=== PATIENT | female | born 1970 | race American Indian/Alaskan Native ===

== ENCOUNTER 2017-01-16 12:24 | Day surgery (SDC) | payer MEDICAID ==
[2017-01-16] MEDS ORDERED: INFANTS' GAS RELIEF PO ONE (13:59)
[2017-01-16] MEDS ORDERED: NACL 0.9% 1000 ML ONE (14:00)
[2017-01-16] MEDS ORDERED: NACL 0.9% 1000 ML 1,000 ML IV SCH (14:00)
[2017-01-16] MEDS ORDERED: WATER FOR IRRIG STERILE ONE (14:43)
--- NOTE | 2017-01-16 15:04 | Anesthesia Day of Surgery ---
Anesthesia Day of Surgery - Day of Surgery Patient Examined: Yes Patient H&P Reviewed: Yes Patient is NPO: Yes
--- NOTE | 2017-01-16 15:05 | Anesthesia Consultation ---
Anesthesia Consult and Med Hx Date of service: 01/16/17 - Airway Anesthetic Teeth Evaluation: Good ROM Head & Neck: Adequate Mental/Hyoid Distance: Adequate Mallampati Class: Class II Intubation Access Assessment: Probably Good - Pulmonary Exam CTA: Yes - Cardiac Exam Cardiac Exam: RRR - Pre-Operative Health Status ASA Pre-Surgery Classification: ASA2 Proposed Anesthetic Plan: MAC - Pulmonary Hx Smoking: Yes (3 cig/day for long time) Hx Asthma: Yes (inhaler prn) Hx Respiratory Symptoms: No (sarcodosis) - Cardiovascular System Hx Hypertension: No Hx Heart Attack/AMI: No - Central Nervous System Hx Seizures: No CVA: No - Additional Comments Anesthesia Medical History Comments: NAC
--- NOTE | 2017-01-16 15:14 | Post Anesthesia Evaluation ---
- Post Anesthesia Evaluation Patient Participated: Yes Airway Patent: Yes Stable Respiratory Function: Yes Nausea/Vomiting: No Temp > 96.8F: Yes Pain Manageable: Yes Adequeate Hydration: Yes Anesthesia Complications: No Block Receding Appropriately: Not Applicable Patient on Ventilator: No
[2017-01-16 15:18] VITALS: BP 109/79
--- NOTE | 2017-01-16 22:25 | Discharge Summary ---
Short Stay Discharge Plan Activity: advance as tolerated Weight Bearing Status: Weight Bear as Tolerated Diet: regular Additional Instructions: Post Sedation D/C Instructions When you return home you may resume your regular diet unless otherwise directed. -Go directly home from the hospital and rest quietly. You may resume normal activities tomorrow. -Do NOT drive, return to work, operate any machinery or make any important personal or business decisions today. -Do NOT drink any alcohol or take nerve or sleeping drugs. They add to the effects of the medicine still present in your body. Follow up with Dr. Thornton in 2 weeks to obtain pathology results. Follow up with: IRAIS METCALF MD [Primary Care Provider] - 7 Days
--- NOTE | 2017-01-16 22:32 | Operative Report ---
Operative Report Operative Report: Date of procedure: 01/16/2017 Procedure: Colonoscopy with hot biopsy polypectomy. Attending physician: Wilmer Thornton MD Binder Fixer: Wilmer Thornton MD Indication: Patient is a 46-year-old female who presents for colonoscopy because of her strong family history of colon cancer. Patient apparently has family history of colon cancer in a first degree relative. Consent: Informed consent was obtained after advising the patient and family regarding nature of this procedure, its indications, potential benefits as well as possible complications including but not limited to bleeding perforation and adverse reaction to medication, infection as well as other cardiopulmonary complications. An informed written and verbal consent was then obtained after due opportunity was provided for questions and answers. Monitoring: Patient was monitored continuously with pulse oximetry and electrocardiographic recordings as well as blood pressure recordings. Vital signs remained stable throughout this procedure with no untoward events. Preoperative assessment: Patient was assessed immediately prior to this procedure for capacity to tolerate monitored anesthesia care and moderate sedation as well as general anesthesia. Patient's ASA classification is 1, Mallampati class is 2], Hyomental distance is 3. Instrument: Cerebrexn videocolonoscope Medications: Propofol given intravenously in divided doses. For details please refer to anesthesia records. Description of procedure: Patient was placed in the left lateral decubitus position after achieving sedation, a digital rectal examination was performed following which the colonoscope was introduced into the anal verge and advanced to the cecum which was identified by the cecal valve, the appendiceal orifice, as well as by the cecal strap and direct transillumination. The colonoscope was subsequently withdrawn with careful inspection of all mucosal surfaces. Patient tolerated this procedure well and was subsequently taken to the recovery room. The following findings were noted. Findings: Patient had 2 diminutive polyps in the sigmoid colon which were removed by hot biopsy polypectomy. There was an adjoining polyp which also was ablated. The rest of the colon to the cecum was normal. There was a diverticulum seen in the ascending colon. On the retroflex view at the anal verge, patient had internal hemorrhoids. Impression: Diminutive Sigmoid colon polyp status post hot biopsy polypectomy. Ascending colon diverticulum. Internal hemorrhoids. Plan: High-fiber diet Follow pathology report to rule out adenoma. Patient should repeat colonoscopy in 5 years.
== END 2017-01-16 12:25 | disposition home or self-care (01) ==
LOC: GIO 12:24
PROVIDERS: ATTEND Internal Medicine Gastroenterology
DX: Z12.11 Encounter for screening for malignant neoplasm of colon (principal); K63.5 Polyp of colon; K57.30 Diverticulosis of large intestine without perforation or abscess without bleeding; K64.8 Other hemorrhoids; F17.210 Nicotine dependence, cigarettes, uncomplicated; J45.909 Unspecified asthma, uncomplicated; Z80.0 Family history of malignant neoplasm of digestive organs
CPT/HCPCS: 45384; 88305; J7030

== ENCOUNTER 2017-11-22 14:38 | Emergency (ER) | payer MEDICAID ==
--- NOTE | 2017-11-22 16:36 | Emergency Department Report ---
ED Headache HPI - General Chief Complaint: Headache Stated Complaint: HEADACHES /BLURRY VISION Time Seen by Provider: 11/22/17 16:16 - History of Present Illness Initial Comments: pt is a 47 y/o aaf with hx of seasonal allergies and sinuse headache presents for same today states frontal headache with sinus pressure. pain is relieved by nothing pain is exacerbated by movement and position, there is no fever no chills no wheezing no cough Timing/Duration: other (2 days ) Quality: moderate Head Injury Location: frontal Recent Head Trauma: occasional headaches Modifying Factors: improves with: other (movement position ) Associated Symptoms: facial pain, nasal congestion, nasal drainage, sinus infection. denies: confusion, fatigue, fever/chills, flushing, nausea/vomiting , numbness in legs/feet, rash, seizures, stiff neck, vision changes, weakness Allergies/Adverse Reactions: Allergies Iodine and Iodide Containing Produc Allergy (Verified 07/02/16 15:46) Hives Sulfa (Sulfonamide Antibiotics) Allergy (Verified 07/02/16 15:46) Rash Home Medications: Ambulatory Orders Ibuprofen [Motrin 800 MG tab] 800 mg PO Q8HR #30 tablet 03/10/15 clonazePAM [KlonoPIN] 1 mg PO TID #30 tablet 03/10/15 ALBUTEROL Inhaler [ProAir HFA Inhaler] 2 puff IH QID PRN #1 inhalation 11/23/15 Benzonatate [Tessalon Perles] 100 mg PO Q8HR #21 capsule 07/02/16 Fluticasone [Flonase] 1 spray NS QDAY #1 bottle 07/02/16 Prednisone [predniSONE 5 mg (6-Day Pack, 21 Tabs)] 5 mg PO .TAPER #1 tab.ds.pk 07/02/16 Venlafaxine [Effexor] 75 mg PO DAILY 07/02/16 diphenhydrAMINE [Benadryl CAP] 50 mg PO DAILY 07/02/16 ALBUTEROL NEB's 90 mcg INHALATION PRN PRN 01/16/17 Clindamycin [Clindamycin CAP] 300 mg PO Q8H #30 cap 11/22/17 Fluticasone [Flonase] 1 spray NS QDAY #1 bottle 11/22/17 Ibuprofen 800 mg PO TID PRN #30 tablet 11/22/17 predniSONE [Deltasone] 40 mg PO QDAY #10 tab 11/22/17 ED Review of Systems ROS: Stated complaint: HEADACHES /BLURRY VISION Other details as noted in HPI Constitutional: denies: chills, fever Eyes: denies: eye pain, eye discharge, vision change ENT: congestion Respiratory: denies: cough, shortness of breath, wheezing Cardiovascular: denies: chest pain, palpitations Endocrine: no symptoms reported Gastrointestinal: denies: abdominal pain, nausea, diarrhea Genitourinary: denies: urgency, dysuria, discharge Musculoskeletal: denies: back pain, joint swelling, arthralgia Skin: denies: rash, lesions Neurological: headache. denies: weakness, numbness, paresthesias, confusion, abnormal gait, vertigo Psychiatric: denies: anxiety, depression Hematological/Lymphatic: as per HPI ED Past Medical Hx - Past Medical History Hx Hypertension: No Hx Heart Attack/AMI: No Hx Seizures: No Hx Asthma: Yes (inhaler prn) Additional medical history: sarcoidosis - Surgical History Additional Surgical History: hyst - Social History Smoking Status: Current Every Day Smoker Substance Use Type: Alcohol - Medications Home Medications: Home Medications Medication Instructions Recorded Confirmed Last Taken Type Ibuprofen [Motrin 800 MG tab] 800 mg PO Q8HR #30 tablet 03/10/15 01/16/17 Unknown Rx clonazePAM [KlonoPIN] 1 mg PO TID #30 tablet 03/10/15 01/16/17 Unknown Rx ALBUTEROL Inhaler [ProAir HFA 2 puff IH QID PRN #1 inhalation 11/23/15 01/16/17 01/08/17 Rx Inhaler] Benzonatate [Tessalon Perles] 100 mg PO Q8HR #21 capsule 07/02/16 01/16/17 Unknown Rx Fluticasone [Flonase] 1 spray NS QDAY #1 bottle 07/02/16 01/16/17 Unknown Rx Prednisone [predniSONE 5 mg (6-Day 5 mg PO .TAPER #1 tab.ds.pk 07/02/16 Unknown Rx Pack, 21 Tabs)] Venlafaxine [Effexor] 75 mg PO DAILY 07/02/16 01/16/17 Unknown History diphenhydrAMINE [Benadryl CAP] 50 mg PO DAILY 07/02/16 01/16/17 Unknown History ALBUTEROL NEB's 90 mcg INHALATION PRN PRN 01/16/17 01/16/17 Unknown History Clindamycin [Clindamycin CAP] 300 mg PO Q8H #30 cap 11/22/17 Unknown Rx Fluticasone [Flonase] 1 spray NS QDAY #1 bottle 11/22/17 Unknown Rx Ibuprofen 800 mg PO TID PRN #30 tablet 11/22/17 Unknown Rx predniSONE [Deltasone] 40 mg PO QDAY #10 tab 11/22/17 Unknown Rx ED Physical Exam - General Limitations: No Limitations General appearance: alert, in no apparent distress - Head Head exam: Present: atraumatic, normocephalic - Eye Eye exam: Present: normal appearance, PERRL, EOMI Pupils: Present: normal accommodation - ENT ENT exam: Present: mucous membranes moist, TM's normal bilaterally, normal external ear exam - Expanded ENT Exam Expanded Ear exam: Present: normal external inspection Mouth exam: Present: other (bilat maxillary sinue tenderness mild swelling no fever yellow clear post nasal drip ). Absent: trismus Throat exam: Positive: normal inspection. Negative: tonsillar erythema, tonsillomegaly, tonsillar exudate, R peritonsillar mass, L peritonsillar mass - Neck Neck exam: Present: normal inspection, full ROM. Absent: tenderness, lymphadenopathy, thyromegaly - Respiratory Respiratory exam: Present: normal lung sounds bilaterally. Absent: respiratory distress, wheezes, rhonchi, chest wall tenderness - Cardiovascular Cardiovascular Exam: Present: regular rate, normal rhythm, normal heart sounds. Absent: systolic murmur, diastolic murmur, rubs, gallop - GI/Abdominal GI/Abdominal exam: Present: soft, normal bowel sounds. Absent: distended, tenderness, guarding, rebound, rigid, organomegaly, mass, bruit - Rectal Rectal exam: Present: deferred - External exam: Present: normal external exam - Extremities Exam Extremities exam: Present: normal inspection, full ROM, normal capillary refill. Absent: tenderness - Back Exam Back exam: Present: normal inspection, full ROM - Neurological Exam Neurological exam: Present: alert, oriented X3, CN II-XII intact, normal gait, reflexes normal - Expanded Neurological Exam Expanded Patient oriented to: Present: person, place, time Speech: Present: fluid speech Cranial nerves: EOM's Intact: Normal, Gag Reflex: Normal, Tongue Deviation: Normal, Nystagmus: Normal, Facial Sensation: Normal Cerebellar function: Romberg: Normal Sensory exam: Upper Extremity Light Touch: Normal, Upper Extremity Temperature: Normal, UE 2 Point Discrimination: Normal, Lower Extremity Light Touch: Normal, Lower Extremity Temperature: Normal, LE 2 Point Discrimination: Normal Motor strength exam: RUE: 5, LUE: 5, RLE: 5, LLE: 5 Best Eye Response ([place]): (4) open spontaneously Best Motor Response (Bharathi): (6) obeys commands Best Verbal Response (Bharathi): (5) oriented [place] Total: 15 - Psychiatric Psychiatric exam: Present: normal affect, normal mood - Skin Skin exam: Present: warm, dry, intact, normal color. Absent: rash ED Course Vital Signs 11/22/17 14:39 Temperature 98.1 F Pulse Rate 103 H Respiratory 16 Rate Blood Pressure 125/89 O2 Sat by Pulse 95 Oximetry ED Medical Decision Making - Medical Decision Making this is a sinus headache and sinusitis will treat for same, nsaids, clindamycin pt is pcn allergic, flonase, prednisone follow up with pcp in 2-3 days return to ed if s yptoms worsen pt verbalized agreement and understanding of same. Critical care attestation.: If time is entered above; I have spent that time in minutes in the direct care of this critically ill patient, excluding procedure time. ED Disposition Clinical Impression: Sinus headache Sinusitis Qualifiers: Sinusitis location: maxillary Chronicity: acute Recurrence: non-recurrent Qualified Code(s): J01.00 - Acute maxillary sinusitis, unspecified Disposition: TO HOME OR SELFCARE Is pt being admited?: No Does the pt Need Aspirin: No Condition: Good Instructions: Sinusitis (ED), Acute Headache (ED) Prescriptions: Clindamycin [Clindamycin CAP] 300 mg PO Q8H #30 cap Fluticasone [Flonase] 1 spray NS QDAY #1 bottle Ibuprofen 800 mg PO TID PRN #30 tablet PRN Reason: Pain , Severe (7-10) predniSONE [Deltasone] 40 mg PO QDAY #10 tab Referrals: PRIMARY CARE,MD [Primary Care Provider] - 3-5 Days Forms: Work/School Release Form(ED) Time of Disposition: 16:47
[2017-11-22] MEDS ORDERED: DELTASONE PO ONE (16:39)
[2017-11-22] MEDS ORDERED: ULTRAM PO ONE (16:39)
[2017-11-22 17:08] VITALS: BP 123/83
== END 2017-11-22 17:07 | disposition home or self-care (01) ==
LOC: ED 14:38
DX: J32.9 Chronic sinusitis, unspecified (principal); J45.909 Unspecified asthma, uncomplicated; F17.200 Nicotine dependence, unspecified, uncomplicated; Z91.041 Radiographic dye allergy status; Z88.2 Allergy status to sulfonamides
CPT/HCPCS: 99282; J7512

== ENCOUNTER 2018-01-12 14:23 | Emergency (ER) | payer MEDICAID ==
[2018-01-12 14:35] VITALS: BP 119/79
--- NOTE | 2018-01-12 16:48 | Emergency Department Report ---
Chief Complaint: Sore Throat Stated Complaint: SORE THROAT Time Seen by Provider: 01/12/18 16:44 - HPI History of Present Illness: 37-year-old AA female presents to the emergency department with a 2 day history of a sore throat that she says is currently 10 out of 10 in pain. She also feels like she has some sinus drainage that is dropping down the back of her throat. No fever. She has not taken anything for her symptoms prior to presentation. No recent travel or sick contacts at home. - ROS Review of Systems: Positive for sore throat, sinus congestion and drainage Negative for fever, headache, vision change, cough - Exam Vital Signs: Vital Signs 01/12/18 14:32 Temperature 98.1 F Pulse Rate 101 H Blood Pressure 119/79 O2 Sat by Pulse 98 Oximetry Physical Exam: Patient is in no acute distress. There is a cobblestoning appearance the posterior pharynx. No significant tonsillar hypertrophy, erythema or exudates. No drooling or trismus. Heart and lungs sounds are normal auscultation. MSE screening note: Focused history and physical exam performed. Due to findings the following was ordered: Patient will have a rapid strep test done. ED Disposition for MSE Condition: Stable Referrals: PRIMARY CARE, [Primary Care Provider] - 3-5 Days
[2018-01-12] MEDS ORDERED: MOTRIN PO ONE (16:49)
[2018-01-12] MEDS ORDERED: LIDOCAINE VISCOUS 2% PO ONE (16:49)
--- NOTE | 2018-01-12 18:20 | Emergency Department Report ---
- General Chief Complaint: Sore Throat Stated Complaint: SORE THROAT Time Seen by Provider: 01/12/18 16:44 Source: patient Mode of arrival: Ambulatory Limitations: No Limitations - History of Present Illness Initial Comments: This is a 47-year-old female nontoxic, well nourished in appearance, no acute signs of distress presents to the ED with c/o of sore throat, frontal sinus pain , rhinorrhea, nasal congestion x2 days. Patient denies any cough. Patient denies any sick contact. Patient denies any recent travels, long car, recent hospital stays. Patient denies any calf pain or calf tenderness. Patient denies any chest pain, short of breath, fever, chills, nausea, vomiting, hemoptysis, numbness, tingling, headache or stiff neck. Patient stated allergies to iodine and sulfa. MD Complaint: sore throat, rhinorrhea, nasal congestion, sinus pain -: days(s) (2) Severity: mild Severity scale (0 -10): 8 Quality: aching Consistency: constant Improves With: nothing Worsens With: nothing Associated Symptoms: headache (frontal sinus pain), rhinorrhea, nasal congestion , sore throat. denies: fever, chills, myalgias, diaphoresis, stiff neck, cough , chest pain, shortness of breath, abdominal pain, nausea, vomiting, diarrhea, dysuria, rash, confusion, right sweats, weight loss, epistaxis, hoarseness, ear pain Treatments Prior to Arrival: none - Related Data Home Medications Medication Instructions Recorded Confirmed Last Taken Venlafaxine [Effexor] 75 mg PO DAILY 07/02/16 01/16/17 Unknown diphenhydrAMINE [Benadryl CAP] 50 mg PO DAILY 07/02/16 01/16/17 Unknown ALBUTEROL NEB's 90 mcg INHALATION PRN PRN 01/16/17 01/16/17 Unknown Previous Rx's Medication Instructions Recorded Last Taken Type Ibuprofen [Motrin 800 MG tab] 800 mg PO Q8HR #30 tablet 03/10/15 Unknown Rx clonazePAM [KlonoPIN] 1 mg PO TID #30 tablet 03/10/15 Unknown Rx ALBUTEROL Inhaler [ProAir HFA 2 puff IH QID PRN #1 inhalation 11/23/15 01/08/17 Rx Inhaler] Benzonatate [Tessalon Perles] 100 mg PO Q8HR #21 capsule 07/02/16 Unknown Rx Fluticasone [Flonase] 1 spray NS QDAY #1 bottle 07/02/16 Unknown Rx Prednisone [predniSONE 5 mg (6-Day 5 mg PO .TAPER #1 tab.ds.pk 07/02/16 Unknown Rx Pack, 21 Tabs)] Clindamycin [Clindamycin CAP] 300 mg PO Q8H #30 cap 11/22/17 Unknown Rx Fluticasone [Flonase] 1 spray NS QDAY #1 bottle 11/22/17 Unknown Rx Ibuprofen 800 mg PO TID PRN #30 tablet 11/22/17 Unknown Rx predniSONE [Deltasone] 40 mg PO QDAY #10 tab 11/22/17 Unknown Rx Amoxicillin/K Clav Tab [Augmentin 1 tab PO Q12HR #20 tab 01/12/18 Unknown Rx 875 mg] Ibuprofen [Motrin] 600 mg PO Q8H PRN #30 tablet 01/12/18 Unknown Rx Nystas/Diphen/Xyl Visc/Mylanta 30 ml MM Q8H PRN 5 Days ml 01/12/18 Unknown Rx [Magic Mouthwash] Allergies Allergy/AdvReac Type Severity Reaction Status Date / Time Iodine and Iodide Containing Allergy Hives Verified 07/02/16 15:46 Produc Sulfa (Sulfonamide Allergy Rash Verified 07/02/16 15:46 Antibiotics) ED Review of Systems ROS: Stated complaint: SORE THROAT Other details as noted in HPI Constitutional: denies: chills, fever Eyes: denies: eye pain, eye discharge, vision change ENT: denies: ear pain, throat pain Respiratory: denies: cough, shortness of breath, wheezing Cardiovascular: denies: chest pain, palpitations Endocrine: no symptoms reported Gastrointestinal: denies: abdominal pain, nausea, diarrhea Genitourinary: denies: urgency, dysuria, discharge Musculoskeletal: denies: back pain, joint swelling, arthralgia Skin: denies: rash, lesions Neurological: denies: headache, weakness, paresthesias Psychiatric: denies: anxiety, depression Hematological/Lymphatic: denies: easy bleeding, easy bruising ED Past Medical Hx - Past Medical History Hx Hypertension: No Hx Heart Attack/AMI: No Hx Seizures: No Hx Asthma: Yes (inhaler prn) Additional medical history: sarcoidosis - Surgical History Past Surgical History?: Yes Additional Surgical History: hystorectomy - Social History Smoking Status: Current Some Day Smoker Substance Use Type: Alcohol - Medications Home Medications: Home Medications Medication Instructions Recorded Confirmed Last Taken Type Ibuprofen [Motrin 800 MG tab] 800 mg PO Q8HR #30 tablet 03/10/15 01/16/17 Unknown Rx clonazePAM [KlonoPIN] 1 mg PO TID #30 tablet 03/10/15 01/16/17 Unknown Rx ALBUTEROL Inhaler [ProAir HFA 2 puff IH QID PRN #1 inhalation 11/23/15 01/16/17 01/08/17 Rx Inhaler] Benzonatate [Tessalon Perles] 100 mg PO Q8HR #21 capsule 07/02/16 01/16/17 Unknown Rx Fluticasone [Flonase] 1 spray NS QDAY #1 bottle 07/02/16 01/16/17 Unknown Rx Prednisone [predniSONE 5 mg (6-Day 5 mg PO .TAPER #1 tab.ds.pk 07/02/16 Unknown Rx Pack, 21 Tabs)] Venlafaxine [Effexor] 75 mg PO DAILY 07/02/16 01/16/17 Unknown History diphenhydrAMINE [Benadryl CAP] 50 mg PO DAILY 07/02/16 01/16/17 Unknown History ALBUTEROL NEB's 90 mcg INHALATION PRN PRN 01/16/17 01/16/17 Unknown History Clindamycin [Clindamycin CAP] 300 mg PO Q8H #30 cap 11/22/17 Unknown Rx Fluticasone [Flonase] 1 spray NS QDAY #1 bottle 11/22/17 Unknown Rx Ibuprofen 800 mg PO TID PRN #30 tablet 11/22/17 Unknown Rx predniSONE [Deltasone] 40 mg PO QDAY #10 tab 11/22/17 Unknown Rx Amoxicillin/K Clav Tab [Augmentin 1 tab PO Q12HR #20 tab 01/12/18 Unknown Rx 875 mg] Ibuprofen [Motrin] 600 mg PO Q8H PRN #30 tablet 01/12/18 Unknown Rx Nystas/Diphen/Xyl Visc/Mylanta 30 ml MM Q8H PRN 5 Days ml 01/12/18 Unknown Rx [Magic Mouthwash] ED Physical Exam - General Limitations: No Limitations General appearance: alert, in no apparent distress - Head Head exam: Present: atraumatic, normocephalic - Eye Eye exam: Present: normal appearance Pupils: Present: normal accommodation - ENT ENT exam: Present: mucous membranes moist, TM's normal bilaterally, normal external ear exam - Expanded ENT Exam Expanded Ear exam: Present: normal external inspection Mouth exam: Present: normal external inspection, tongue normal. Absent: drooling, trismus, muffled voice, tongue elevation, laceration Teeth exam: Present: normal inspection Throat exam: Positive: tonsillar erythema, other (Uvula midline. ). Negative: tonsillomegaly, tonsillar exudate, R peritonsillar mass, L peritonsillar mass - Neck Neck exam: Present: normal inspection, full ROM. Absent: tenderness, meningismus, lymphadenopathy - Respiratory Respiratory exam: Present: normal lung sounds bilaterally. Absent: respiratory distress, wheezes, rales, rhonchi, stridor, chest wall tenderness, accessory muscle use, decreased breath sounds, prolonged expiratory - Cardiovascular Cardiovascular Exam: Present: regular rate, normal rhythm, normal heart sounds. Absent: irregular rhythm, systolic murmur, diastolic murmur, rubs, gallop - GI/Abdominal GI/Abdominal exam: Present: soft, normal bowel sounds - Rectal Rectal exam: Present: deferred - Extremities Exam Extremities exam: Present: normal inspection, full ROM, normal capillary refill. Absent: tenderness - Back Exam Back exam: Present: normal inspection, full ROM - Neurological Exam Neurological exam: Present: alert, oriented X3, normal gait - Psychiatric Psychiatric exam: Present: normal affect, normal mood - Skin Skin exam: Present: warm, dry, intact, normal color. Absent: rash - Other Other exam information: Positive frontal sinus tenderness ED Course Vital Signs 01/12/18 14:32 Temperature 98.1 F Pulse Rate 101 H Blood Pressure 119/79 O2 Sat by Pulse 98 Oximetry - Reevaluation(s) Reevaluation #1: 01/12/18 18:20 Patient is speaking in full sentences with no signs of distress noted. - Consultations Consultation #1: 01/12/18 18:20 Patient has been consulted with Dr. Franklin about patient history, physical exam, and labs and examined and screened patient and agrees to ED plan of care and discharge plan of care. ED Medical Decision Making - Medical Decision Making This is a 47-year-old female that presents with URI and sinusitis. Patient is stable and was examined by me and Dr. Franklin. Negative strep test. Due to patient having symptoms of bronchitis and worsening I will treat patient empirically with Augmentin. Patient was instructed to increase hydration, rest and take Motrin for fever episodes. Patient received motrin and lidocaine visious in the ED. Vitals stable. Patient is nonfebrile and normal heart rate. Patient was instructed Follow-up with a primary care doctor in 3-5 days or if symptoms worsen and continue return to emergency room as soon as possible. At time time of discharge, the patient does not seem toxic or ill in appearance. No acute signs of distress noted. Patient agrees to discharge treatment plan of care. No further questions noted by the patient. Critical care attestation.: If time is entered above; I have spent that time in minutes in the direct care of this critically ill patient, excluding procedure time. ED Disposition Clinical Impression: Upper respiratory infection Qualifiers: URI type: unspecified URI Qualified Code(s): J06.9 - Acute upper respiratory infection, unspecified Sinusitis Qualifiers: Sinusitis location: frontal Chronicity: acute Recurrence: non-recurrent Qualified Code(s): J01.10 - Acute frontal sinusitis, unspecified Disposition: DC-01 TO HOME OR SELFCARE Is pt being admited?: No Does the pt Need Aspirin: No Condition: Stable Instructions: Amoxicillin/Clavulanate Potassium (By mouth), Ibuprofen (By mouth ), Sinusitis (ED) Additional Instructions: Follow-up with a primary care doctor in 3-5 days or if symptoms worsen and continue return to emergency room as soon as possible. Prescriptions: Amoxicillin/K Clav Tab [Augmentin 875 mg] 1 tab PO Q12HR #20 tab Ibuprofen [Motrin] 600 mg PO Q8H PRN #30 tablet PRN Reason: Pain Nystas/Diphen/Xyl Visc/Mylanta [Magic Mouthwash] 30 ml MM Q8H PRN 5 Days ml PRN Reason: Sore Throat Referrals: PRIMARY CAREMD [Primary Care Provider] - 3-5 Days DARNELL DEAL MD [Staff Physician] - 3-5 Days [facility] [Outside] - 3-5 Days [facility] [Outside] - 3-5 Days Forms: Work/School Release Form(ED)
== END 2018-01-12 18:30 | disposition home or self-care (01) ==
LOC: ED 14:23
DX: J06.9 Acute upper respiratory infection, unspecified (principal); J32.9 Chronic sinusitis, unspecified; J45.909 Unspecified asthma, uncomplicated; F17.200 Nicotine dependence, unspecified, uncomplicated; Z90.710 Acquired absence of both cervix and uterus; Z88.2 Allergy status to sulfonamides
CPT/HCPCS: 87116; 87430; 99282

== ENCOUNTER 2018-04-30 10:53 | Emergency (ER) | payer MEDICAID ==
[2018-04-30 12:03] VITALS: BP 115/79
[2018-04-30] MEDS ORDERED: DUONEB *Not for PRN Use IH ONE (12:32)
--- NOTE | 2018-04-30 12:32 | Emergency Department Report ---
Chief Complaint: Dyspnea/Respdistress Stated Complaint: SOB/WEAK/DIZZY Time Seen by Provider: 04/30/18 12:07 - HPI History of Present Illness: 28-year-old female presents to the emergency department with complaint of some shortness of breath, dizziness and feeling like she is dehydrated that most started earlier today. She has a history of sarcoidosis and she did use her inhaler with some relief. She is still a tobacco smoker. She says that the dizziness has improved but not complete resolved. She says it mostly feels like she is dizzy when she stands up. She also feels that she is dehydrated as she feels very thirsty despite drinking water. She goes to the [facility] for primary care. No recent travel. She denies any fever, chest pain, nausea, vomiting, headache, vision change, slurred speech. - ROS Review of Systems: Positive for dizziness, shortness of breath, increased thirst Negative for chest pain, fever or back pain, headache, nausea, vomiting - Exam Vital Signs: Vital Signs 04/30/18 12:00 Temperature 97.8 F Pulse Rate 126 H Respiratory 18 Rate Blood Pressure 115/79 O2 Sat by Pulse 99 Oximetry Physical Exam: Patient does not appear to be in any respiratory distress. Heart and lungs sounds are normal auscultation. She is awake and alert and appropriate. Cranial nerves II through XII grossly intact. MSE screening note: Focused history and physical exam performed. Due to findings the following was ordered: I have ordered a CBC, BMP and troponin. She will have a 2 view x-ray of the chest and an EKG. She's been given a breathing treatment. ED Disposition for MSE Condition: Stable Referrals: PRIMARY CARE, [Primary Care Provider] - 3-5 Days
[2018-04-30 13:01] LABS: Basophils # (Auto) 0.1 K/mm3 (0.0-0.1); Basophils % (Auto) 0.8 % (0.0-1.8); Eosinophils # (Auto) 0.1 K/mm3 (0.0-0.4); Eosinophils % (Auto) 1.7 % (0.0-4.3); Hemoglobin 14.3 gm/dl (10.1-14.3); Lymphocytes # (Auto) 2.9 K/mm3 (1.2-5.4); Mean Corpuscular HGB Conc 33 % (30-34); Mean Corpuscular Hemoglobin 31 pg (28-32); Mean Corpuscular Volume 91 fl (79-97); Monocytes # (Auto) 0.4 K/mm3 (0.0-0.8); Monocytes % (Auto) 4.4 % (0.0-7.3); Platelet Count 216 K/mm3 (140-440); Red Blood Count 4.71 M/mm3 (3.65-5.03); Red Cell Distribution Width 14.2 % (13.2-15.2)
[2018-04-30 13:24] LABS: BUN/Creatinine Ratio 11; Blood Urea Nitrogen 10 mg/dL (7-17); Calcium 9.5 mg/dL (8.4-10.2); Hemolysis Index 8
--- NOTE | 2018-04-30 13:52 | Emergency Department Report ---
ED Shortness of Breath HPI - General Chief Complaint: Dyspnea/Respdistress Stated Complaint: SOB/WEAK/DIZZY Time Seen by Provider: 04/30/18 12:07 Source: patient Mode of arrival: Ambulatory Limitations: No Limitations - History of Present Illness Initial Comments: This is a 48-year-old -[place] female who presents with shortness of breath and lightheadedness since this morning. Patient states she woke up feeling lightheaded and feeling like she couldn't catch her breath. Past medical history of asthma and sarcoidosis. Current smoker, 6-8 cigarettes a day. Patient states she was feeling sick a few days ago with chills, congestion , and non-productive cough. She is currently not taking anything for symptom relief. Patient states she used inhaler with some relief. She reports improvement of dizziness. Dizziness is worse with standing. She also feels that she is dehydrated as she feels very thirsty despite drinking water. She goes to the [facility] for primary care. She denies recent travel, fever, chest pain, nausea, vomiting, headache, vision change, and slurred speech. MD Complaint: shortness of breath, cough -: This morning Severity: mild Pain Scale: 0 Improves With: bronchodilators Worsens With: movement Known History Of: asthma, other (sarcoidosis) Context: smoke/fume exposure, recent illness Associated Symptoms: cough Treatments Prior to Arrival: bronchodilator - Related Data Home Oxygen Therapy: No Home Medications Medication Instructions Recorded Confirmed Last Taken Venlafaxine [Effexor] 75 mg PO DAILY 07/02/16 01/16/17 Unknown diphenhydrAMINE [Benadryl CAP] 50 mg PO DAILY 07/02/16 01/16/17 Unknown ALBUTEROL NEB's 90 mcg INHALATION PRN PRN 01/16/17 01/16/17 Unknown Previous Rx's Medication Instructions Recorded Last Taken Type Ibuprofen [Motrin 800 MG tab] 800 mg PO Q8HR #30 tablet 03/10/15 Unknown Rx clonazePAM [KlonoPIN] 1 mg PO TID #30 tablet 03/10/15 Unknown Rx ALBUTEROL Inhaler (OR & NICU) 2 puff IH QID PRN #1 inhalation 11/23/15 01/08/17 Rx [ProAir HFA Inhaler] Benzonatate [Tessalon Perles] 100 mg PO Q8HR #21 capsule 07/02/16 Unknown Rx Fluticasone [Flonase] 1 spray NS QDAY #1 bottle 07/02/16 Unknown Rx Prednisone [predniSONE 5 mg (6-Day 5 mg PO .TAPER #1 tab.ds.pk 07/02/16 Unknown Rx Pack, 21 Tabs)] Clindamycin [Clindamycin CAP] 300 mg PO Q8H #30 cap 11/22/17 Unknown Rx Fluticasone [Flonase] 1 spray NS QDAY #1 bottle 11/22/17 Unknown Rx Ibuprofen 800 mg PO TID PRN #30 tablet 11/22/17 Unknown Rx predniSONE [Deltasone] 40 mg PO QDAY #10 tab 11/22/17 Unknown Rx Amoxicillin/K Clav Tab [Augmentin 1 tab PO Q12HR #20 tab 01/12/18 Unknown Rx 875 mg] Ibuprofen [Motrin] 600 mg PO Q8H PRN #30 tablet 01/12/18 Unknown Rx Nystas/Diphen/Xyl Visc/Mylanta 30 ml MM Q8H PRN 5 Days ml 01/12/18 Unknown Rx [Magic Mouthwash] Cetirizine HCl [Zyrtec] 10 mg PO DAILY #30 tablet 04/30/18 Unknown Rx Fluticasone [Flonase] 1 spray NS QDAY #1 bottle 04/30/18 Unknown Rx predniSONE [Deltasone] 60 mg PO QDAY #9 tab 04/30/18 Unknown Rx Allergies Allergy/AdvReac Type Severity Reaction Status Date / Time Iodine and Iodide Containing Allergy Hives Verified 07/02/16 15:46 Produc Sulfa (Sulfonamide Allergy Rash Verified 07/02/16 15:46 Antibiotics) ED Review of Systems ROS: Stated complaint: SOB/WEAK/DIZZY Other details as noted in HPI Constitutional: denies: chills, fever ENT: congestion. denies: ear pain, throat pain Respiratory: cough, shortness of breath. denies: wheezing Cardiovascular: denies: chest pain, palpitations Gastrointestinal: denies: abdominal pain, nausea, diarrhea Neurological: denies: headache, weakness, paresthesias Psychiatric: denies: anxiety, depression ED Past Medical Hx - Past Medical History Hx Hypertension: No Hx Heart Attack/AMI: No Hx Seizures: No Hx Asthma: Yes (inhaler prn) Additional medical history: sarcoidosis - Surgical History Additional Surgical History: hystorectomy - Social History Smoking Status: Current Every Day Smoker Substance Use Type: None - Medications Home Medications: Home Medications Medication Instructions Recorded Confirmed Last Taken Type Ibuprofen [Motrin 800 MG tab] 800 mg PO Q8HR #30 tablet 03/10/15 01/16/17 Unknown Rx clonazePAM [KlonoPIN] 1 mg PO TID #30 tablet 03/10/15 01/16/17 Unknown Rx ALBUTEROL Inhaler (OR & NICU) 2 puff IH QID PRN #1 inhalation 11/23/15 01/16/17 01/08/17 Rx [ProAir HFA Inhaler] Benzonatate [Tessalon Perles] 100 mg PO Q8HR #21 capsule 07/02/16 01/16/17 Unknown Rx Fluticasone [Flonase] 1 spray NS QDAY #1 bottle 07/02/16 01/16/17 Unknown Rx Prednisone [predniSONE 5 mg (6-Day 5 mg PO .TAPER #1 tab.ds.pk 07/02/16 Unknown Rx Pack, 21 Tabs)] Venlafaxine [Effexor] 75 mg PO DAILY 07/02/16 01/16/17 Unknown History diphenhydrAMINE [Benadryl CAP] 50 mg PO DAILY 07/02/16 01/16/17 Unknown History ALBUTEROL NEB's 90 mcg INHALATION PRN PRN 01/16/17 01/16/17 Unknown History Clindamycin [Clindamycin CAP] 300 mg PO Q8H #30 cap 11/22/17 Unknown Rx Fluticasone [Flonase] 1 spray NS QDAY #1 bottle 11/22/17 Unknown Rx Ibuprofen 800 mg PO TID PRN #30 tablet 11/22/17 Unknown Rx predniSONE [Deltasone] 40 mg PO QDAY #10 tab 11/22/17 Unknown Rx Amoxicillin/K Clav Tab [Augmentin 1 tab PO Q12HR #20 tab 01/12/18 Unknown Rx 875 mg] Ibuprofen [Motrin] 600 mg PO Q8H PRN #30 tablet 01/12/18 Unknown Rx Nystas/Diphen/Xyl Visc/Mylanta 30 ml MM Q8H PRN 5 Days ml 01/12/18 Unknown Rx [Magic Mouthwash] Cetirizine HCl [Zyrtec] 10 mg PO DAILY #30 tablet 04/30/18 Unknown Rx Fluticasone [Flonase] 1 spray NS QDAY #1 bottle 04/30/18 Unknown Rx predniSONE [Deltasone] 60 mg PO QDAY #9 tab 04/30/18 Unknown Rx ED Physical Exam - General Limitations: No Limitations General appearance: alert, in no apparent distress - ENT ENT exam: Present: mucous membranes moist, other (turbinates mildly congested with clear discharge). Absent: normal orophraynx (erythematous posterior pharynx) - Respiratory Respiratory exam: Present: normal lung sounds bilaterally. Absent: respiratory distress - Cardiovascular Cardiovascular Exam: Present: regular rate, normal rhythm. Absent: systolic murmur, diastolic murmur, rubs, gallop - GI/Abdominal GI/Abdominal exam: Present: soft, normal bowel sounds. Absent: organomegaly, mass - Neurological Exam Neurological exam: Present: alert, oriented X3 - Psychiatric Psychiatric exam: Present: normal affect, normal mood - Skin Skin exam: Present: warm, dry, intact, normal color. Absent: rash ED Course Vital Signs 04/30/18 04/30/18 12:00 14:41 Temperature 97.8 F Pulse Rate 126 H 99 H Respiratory 18 20 Rate Blood Pressure 115/79 O2 Sat by Pulse 99 99 Oximetry ED Medical Decision Making - Lab Data Result diagrams: 04/30/18 12:49 04/30/18 12:49 Lab Results 04/30/18 04/30/18 Range/Units 12:49 12:49 WBC 8.7 (4.5-11.0) K/mm3 RBC 4.71 (3.65-5.03) M/mm3 Hgb 14.3 (10.1-14.3) gm/dl Hct 43.0 H (30.3-42.9) % MCV 91 (79-97) fl MCH 31 (28-32) pg MCHC 33 (30-34) % RDW 14.2 (13.2-15.2) % Plt Count 216 (140-440) K/mm3 Lymph % (Auto) 33.0 (13.4-35.0) % [place] % (Auto) 4.4 (0.0-7.3) % Eos % (Auto) 1.7 (0.0-4.3) % Baso % (Auto) 0.8 (0.0-1.8) % Lymph # 2.9 (1.2-5.4) K/mm3 [place] # 0.4 (0.0-0.8) K/mm3 Eos # 0.1 (0.0-0.4) K/mm3 Baso # 0.1 (0.0-0.1) K/mm3 Seg Neutrophils % 60.1 (40.0-70.0) % Seg Neutrophils # 5.2 (1.8-7.7) K/mm3 Sodium 133 L (137-145) mmol/L Potassium 4.3 (3.6-5.0) mmol/L Chloride 96.7 L (98-107) mmol/L Carbon Dioxide 22 (22-30) mmol/L Anion Gap 19 mmol/L BUN 10 (7-17) mg/dL Creatinine 0.9 (0.7-1.2) mg/dL Estimated GFR > 60 ml/min BUN/Creatinine Ratio 11 % Glucose 93 (65-100) mg/dL Calcium 9.5 (8.4-10.2) mg/dL Troponin T < 0.010 (0.00-0.029) ng/mL - Radiology Data Radiology results: report reviewed, image reviewed ROUTINE CHEST, TWO VIEWS: HISTORY: Short of breath. The trachea, heart, mediastinal contour, lung bui and bony thorax are unremarkable. Minor linear scarring in the lateral left upper lobe is unchanged since 11/22/15. IMPRESSION: Unremarkable chest x-ray. - Medical Decision Making Patient was examined by me and Dr. Franklin. Patient tachycardic on arrival. Patient given DuoNeb treatment once while in ER. On reevaluation wheezing resolved. Obtained labs and chest x-ray. All labs are unremarkable. X-ray dictated by radiologist report reviewed by myself with no acute cardiopulmonary findings. Patient informed of results. Physical findings susceptible of allergic rhinitis and asthma exacerbation. Start flonase, ceterizine, and prednisone. Plan discussed with patient to discharge home and treat outpatient. He agrees with ER plan. Patient discharged home in stable condition. Follow up with PCP in 2-3 days. Critical care attestation.: If time is entered above; I have spent that time in minutes in the direct care of this critically ill patient, excluding procedure time. ED Disposition Clinical Impression: Shortness of breath Allergic rhinitis Qualifiers: Allergic rhinitis trigger: pollen Allergic rhinitis seasonality: seasonal Qualified Code(s): J30.1 - Allergic rhinitis due to pollen Asthma exacerbation Qualifiers: Asthma severity: mild Asthma persistence: intermittent Qualified Code(s): J45.21 - Mild intermittent asthma with (acute) exacerbation Disposition: TO HOME OR SELFCARE Is pt being admited?: No Does the pt Need Aspirin: No Condition: Stable Instructions: Asthma (ED), Allergic Rhinitis (ED) Additional Instructions: It is important to use inhaler or have active albuterol inhaler and avoiding asthma triggers. Complete full course of prednisone steroids as prescribed. Follow up with Primary Care Provider in 24-72 hours. Prescriptions: Cetirizine HCl [Zyrtec] 10 mg PO DAILY #30 tablet Fluticasone [Flonase] 1 spray NS QDAY #1 bottle predniSONE [Deltasone] 60 mg PO QDAY #9 tab Referrals: VIOLETA BECKMAN SR, MD [Referring] - 3-5 Days [facility] [Outside] - 3-5 Days Forms: Work/School Release Form(ED) Time of Disposition: 14:20 Print Language: [place]
--- NOTE | 2018-04-30 13:56 | XRay Report ---
ROUTINE CHEST, TWO VIEWS: HISTORY: Short of breath. The trachea, heart, mediastinal contour, lung bui and bony thorax are unremarkable. Minor linear scarring in the lateral left upper lobe is unchanged since 11/22/15. IMPRESSION: Unremarkable chest x-ray.
== END 2018-04-30 14:41 | disposition home or self-care (01) ==
LOC: ED 10:53
DX: J30.1 Allergic rhinitis due to pollen (principal); F17.200 Nicotine dependence, unspecified, uncomplicated; Z88.2 Allergy status to sulfonamides; Z90.710 Acquired absence of both cervix and uterus
CPT/HCPCS: 36415; 71046; 80048; 84484; 85025; 93005; 93010; 94640; 99284